=== PATIENT | male | born 1980 | race Caucasian/White ===

== ENCOUNTER 2017-05-25 17:32 | Emergency (ER) | payer BC, OTHER ==
[~2017-05-25] VITALS: Ht 175.3 cm; Wt 94.8 kg
[2017-05-25] MEDS ORDERED: LIDODERM 5% P1 PATCH TD (19:45)
[2017-05-25 20:30] VITALS: BP 153/105
== END 2017-05-25 20:30 | disposition home or self-care (01) ==
LOC: EME 17:32
DX: M54.2 Cervicalgia (principal); G89.29 Other chronic pain; M06.9 Rheumatoid arthritis, unspecified; J45.909 Unspecified asthma, uncomplicated; G40.909 Epilepsy, unspecified, not intractable, without status epilepticus; Z98.1 Arthrodesis status
CPT/HCPCS: 72125; 99281; 99284; J3010